=== PATIENT | female | born 1995 | race Caucasian/White ===

== ENCOUNTER 2019-06-05 20:49 | Emergency (ER) | payer MEDICAID, OTHER ==
[~2019-06-05] VITALS: Ht 160 cm; Wt 91.2 kg
[2019-06-05 20:53] VITALS: BP 116/63
--- NOTE | 2019-06-05 21:02 | NUR ---
PT AMBULATED TO BED 6.
--- NOTE | 2019-06-05 21:15 | NUR ---
Note undone in EDM - 06/05/19 at 2119 by [email or web address] PT CAME TO ER C/O VAGINAL BLEEDING. PT IS 9 WEEKS AND 4 DAYS. PT CAME TO ER 05/26/19 AND WAS DIAGNOSED WITH A THREATENED MISCARRIAGE. THIS IS HER 3RD , SHE HAS 2 KIDS. PT STARTED BLEEDING TODAY, MODERATE AMOUNT, PER PT SHE SATURATED 2 PADS. PT WAS RECEIVING CARE AND TAKING VITAMINS. PT DENIES ANY PAIN, PAIN LEVEL 0/10. NKA. NO MED HX. SAFETY MEASURES IN PLACE. ERMD AT BEDSIDE.
--- NOTE | 2019-06-05 21:15 | NUR ---
Note undone in EDM - 06/05/19 at 2120 by [email or web address] PT CAME TO ER C/O VAGINAL BLEEDING. PT IS 9 WEEKS AND 4 DAYS. PT CAME TO ER 05/26/19 AND WAS DIAGNOSED WITH A THREATENED MISCARRIAGE. THIS IS HER 3RD , SHE HAS 2 KIDS. PT STARTED BLEEDING TODAY, MODERATE AMOUNT, PER PT SHE SATURATED 2 PADS. PT WAS RECEIVING CARE AND TAKING VITAMINS. PT PAIN LEVEL 7/10, SUPRAPUBIC AREA. NKA. NO MED HX. SAFETY MEASURES IN PLACE. ERMD AT BEDSIDE.
--- NOTE | 2019-06-05 21:20 | NUR ---
LAB AT BEDSIDE
--- NOTE | 2019-06-05 21:25 | NUR ---
ULTRASOUND AT BEDSIDE
[2019-06-05 21:27] LABS: BASOPHILS # (AUTO) 0.1 K/uL (0.00-0.22); BASOPHILS % (AUTO) 0.8 % (0.0-2.0); EOSINOPHILS # (AUTO) 0.3 K/uL (0-0.4); EOSINOPHILS % (AUTO) 2.4 % (0.0-4.0); HEMATOCRIT 35.5 % (36-48); HEMOGLOBIN 11.4 g/dL (12.0-16.0); LYMPHOCYTES # (AUTO) 3.4 K/uL (2.5-16.5); LYMPHOCYTES % (AUTO) 27.2 % (20.5-51.1); MEAN CORPUSCULAR HEMOGLOBIN 25 pg (27-31); MEAN CORPUSCULAR HGB CONC 32 g/dL (33-37); MEAN CORPUSCULAR VOLUME 76.1 fL (80-94); MONOCYTES # (AUTO) 0.9 K/uL (0.8-1.0); MONOCYTES % (AUTO) 6.8 % (1.7-9.3); NEUTROPHILS % (AUTO) 62.8 % (42.2-75.2); PLATELET COUNT (AUTO) 105 K/uL (140-450); RED BLOOD CELL COUNT(AUTO) 4.67 MIL/uL (4.20-5.40); RED CELL DISTRIBUTION WIDTH 16.6 % (11.6-13.7); WHITE BLOOD COUNT (AUTO) 12.7 K/uL (4.8-10.8)
[2019-06-05 21:50] LABS: APPEARANCE,URINE CLOUDY (CLEAR); BILIRUBIN,URINE NEGATIVE (NEGATIVE); BLOOD, URINE 3+ (NEGATIVE); COLOR,URINE RED (YELLOW); LEUKOCYTE ESTERASE ,URINE 2+ (NEGATIVE); NITRITE, URINE POSITIVE (NEGATIVE); UGLUCOSE NEGATIVE (NEGATIVE)
--- NOTE | 2019-06-05 21:53 | NUR ---
PT SITTING UP IN BED WITH FAMILY AT BEDSIDE. VSS. WILL CONTINUE TO MONITOR.
[2019-06-05 21:54] LABS: ANION GAP 13.6 (8-16); CARBON DIOXIDE 27.2 mmol/L (21-32); CREATININE 1.2 mg/dL (0.6-1.3); POTASSIUM 3.8 mmol/L (3.5-5.1)
[2019-06-05 22:09] LABS: RBC,URINE TOO NUMEROUS TO COUN /HPF (0-5); WBC,URINE 0-5 /HPF (0-5)
--- NOTE | 2019-06-05 22:44 | NUR ---
Patient discharged with v/s stable. Written and verbal after care instructions given and explained. Patient alert, oriented and verbalized understanding of instructions. Ambulatory with steady gait. All questions addressed prior to discharge. ID band removed. Opportunity to ask questions provided and answered.
[2019-06-05 22:45] VITALS: BP 114/71
== END 2019-06-05 22:45 | disposition home or self-care (01) ==
LOC: MED 20:49
DX: O20.0 Threatened abortion (principal); Z3A.01 Less than 8 weeks gestation of pregnancy
CPT/HCPCS: 36415; 76801; 80048; 81001; 84702; 85025; 86900; 86901; 87086; 99284; Q0092